=== PATIENT | male | born 1995 | race American Indian/Alaskan Native ===

== ENCOUNTER 2017-04-17 10:45 | Emergency (ER) | payer MEDICAID ==
[2017-04-17 11:12] VITALS: BP 113/67
[2017-04-17 12:01] LABS: Bilirubin,Urine NEG (Negative); Blood,Urine NEG (Negative); Color,Urine Yellow (Yellow); Mucus,Urine FEW /HPF; Protein,Urine <15 mg/dL mg/dL (Negative); WBC,Urine < 1.0 /HPF (0.0-6.0)
--- NOTE | 2017-04-17 12:49 | Emergency Department Report ---
ED Male HPI - General Chief complaint: Urogenital-Male Stated complaint: PAIN WITH URINATION Time Seen by Provider: 04/17/17 12:36 Source: patient Mode of arrival: Ambulatory Limitations: No Limitations - History of Present Illness Initial comments: This is a 21 y.o. male that presents with dysuria and white discharge for 1 week. Patient recently moved here from [place]. He had unprotected sex with his child mother prior to moving. He recently found out she was cheating on him with someone else. The discharge is thick and yellow-white. Denies lesions, bumps, low abdominal pain, low back pain, and fever. MD Complaint: penile discharge (yellow-white, thick), dysuria -: week(s) (1) Location: penis Radiation: none Severity: moderate Severity scale (0 -10): 7 Quality: aching Consistency: constant (discharge is worse in the morning) Improves with: none Worsens with: none new sexual partner (old sexual partner) discharge. denies: swelling, mass, rash, urinary retention, blood in urine, dysuria, fever, nausea/vomiting, incontinence - Related Data Sexually active: Yes Previous Rx's Medication Instructions Recorded Last Taken Type Doxycycline Monohydrate 100 mg PO BID 5 Days #10 capsule 04/17/17 Unknown Rx Allergies Allergy/AdvReac Type Severity Reaction Status Date / Time No Known Allergies Allergy Unverified 04/17/17 11:40 ED Review of Systems ROS: Stated complaint: PAIN WITH URINATION Other details as noted in HPI Constitutional: denies: chills, fever Respiratory: denies: cough, shortness of breath, wheezing Cardiovascular: denies: chest pain, palpitations Gastrointestinal: denies: abdominal pain, nausea, diarrhea Genitourinary: dysuria, discharge (white-yellowish, thick). denies: urgency Neurological: denies: headache, weakness, paresthesias Psychiatric: denies: anxiety, depression, auditory hallucinations, visual hallucinations, homicidal thoughts, suicidal thoughts ED Past Medical Hx - Past Medical History Previous Medical History?: No - Surgical History Past Surgical History?: No - Social History Smoking Status: Never Smoker Substance Use Type: None - Medications Home Medications: Home Medications Medication Instructions Recorded Confirmed Last Taken Type Doxycycline Monohydrate 100 mg PO BID 5 Days #10 capsule 04/17/17 Unknown Rx ED Physical Exam - General Limitations: No Limitations General appearance: alert, in no apparent distress - Respiratory Respiratory exam: Present: normal lung sounds bilaterally. Absent: respiratory distress - Cardiovascular Cardiovascular Exam: Present: regular rate, normal rhythm, normal heart sounds. Absent: systolic murmur, diastolic murmur, rubs, gallop - GI/Abdominal GI/Abdominal exam: Present: soft, normal bowel sounds - exam: Present: urethral discharge (white). Absent: scrotal swelling, vertical testicular lie, circumcision (uncircumcised) External exam: Present: normal external exam. Absent: erythema, swelling, lesions, lacerations, ecchymosis, bleeding - Neurological Exam Neurological exam: Present: alert, oriented X3, normal gait - Skin Skin exam: Present: warm, dry, intact, normal color. Absent: rash ED Course Vital Signs 04/17/17 11:09 Temperature 98.4 F Pulse Rate 77 Respiratory 18 Rate Blood Pressure 113/67 O2 Sat by Pulse 99 Oximetry ED Medical Decision Making - Medical Decision Making This is a 21 y.o. male that presents with vaginal discharge and dysuria for 1 week. Patient was examined by me. Obtained UA and G/C. Discussed results with patient. Advised to return to ER in 3-5 days for GC results. Given rocephin 250 mg IM, azithromycin 1g po in ER. Discharged home in stable condition. Start doxycycline 100 mg po bid x 5 days. Discussed prevention options. F/U with PCP or Health Department. Critical care attestation.: If time is entered above; I have spent that time in minutes in the direct care of this critically ill patient, excluding procedure time. ED Disposition Clinical Impression: STD exposure Disposition: DC-01 TO HOME OR SELFCARE Is pt being admited?: No Does the pt Need Aspirin: No Condition: Stable Instructions: Sexually Transmitted Diseases (ED), Safe Sex (ED) Additional Instructions: Avoid drinking alcohol for 24 hours while taking antibiotic. Continue safe sexual intercourse. Return to ER for lab results in 3-5 days. Follow up with Primary Care Provider or health department. Prescriptions: Doxycycline Monohydrate 100 mg PO BID 5 Days #10 capsule Referrals: [facility] [Outside] - 3-5 Days [facility] [Outside] - 3-5 Days [facility] [Outside] - 3-5 Days [facility] [Outside] - 3-5 Days Forms: Work/School Release Form(ED) Time of Disposition: 12:59 Print Language: SLOV[place]
[2017-04-17] MEDS ORDERED: ROCEPHIN IM ONE (12:54)
[2017-04-17] MEDS ORDERED: ZITHROMAX PO ONE (12:54)
[2017-04-17] MEDS ORDERED: XYLOCAINE 1% MPF 5 mL INFILTRATI ONE (12:54)
== END 2017-04-17 13:12 | disposition home or self-care (01) ==
LOC: ED 10:45
DX: Z20.2 Contact with and (suspected) exposure to infections with a predominantly sexual mode of transmission (principal); R36.9 Urethral discharge, unspecified; R30.0 Dysuria
CPT/HCPCS: 81001; 87591; 96372; 99283; J0696